=== PATIENT | male | born 1980 | race Caucasian/White ===

== ENCOUNTER → 2017-01-26 | Outpatient (CLI) | payer OTHER ==
--- NOTE | 2017-01-26 16:24 | KCIC ---
MRI Lumbar Spine without contrast History: Intervertebral disc degeneration, chronic low back pain and bilateral hip pain, left radiculopathy Technique: Multiplanar, multi sequential noncontrast MR imaging was performed of the lumbar spine. Contrast: None Comparison: None Findings: Lumbar vertebral body stature and alignment are maintained. There is mild degenerative disease L4-5 and L5-S1. There are posterior annular tears L4-5 and L5-S1, anterior annular tear L5-S1. Conus terminates normally at L1. There is no significant marrow edema. L2-L3: Spinal canal and neural foramina are adequate. L3-L4: There is mild prominence of posterior epidural fat. There is mild buckling of the ligamentum flavum and facet hypertrophic change. Neural foramina are adequate. There is mild attenuation of the thecal sac mostly from posterior epidural lipomatosis. L4-L5: There is minimal disc osteophyte complex and bulge eccentric to the left lateral recess. There is mild prominence of posterior epidural fat, mild buckling of the ligamentum flavum, and facet degenerative change. There is [id number] narrowing of the left lateral recess, contact of the descending left L5 nerve root. Neural foramina are adequate. L5-S1: There is minimal posterior disc osteophyte complex and shallow bulge. There is no significant impingement descending S1 nerve roots, spinal canal overall adequate. There is mild narrowing of the left neural foramen, right neural foramen adequate. Impression: 1. There is [id number] left lateral recess stenosis at L4-5 by disc osteophyte complex and bulge, contact of the descending left L5 nerve root. 2. There is mild degenerative disc disease and spondylosis at L4-5 and L5-S1. Electronically signed by: Graham Conner MD (01/26/2017 4:21 PM)
--- NOTE | 2017-01-26 16:43 | KCIC ---
MR of the right shoulder HISTORY: Right shoulder pain chronically. TECHNIQUE: Routine multiplanar sequences are obtained. FINDINGS: The acromioclavicular joint is intact. Mild diffuse thickening and signal of the rotator cuff compatible with tendinosis. No evidence of a rotator cuff tear. No significant subdeltoid bursal fluid. No significant glenohumeral joint effusion. No evidence of labral tear. No advanced osteoarthritis. Biceps tendon is intact. No bone lesion. No acute fracture. No acute soft tissue abnormality. IMPRESSION: 1. Rotator cuff tendinosis without evidence of a tear. 2. No acute findings. Electronically signed by: Javier Gomez MD (01/26/2017 4:40 PM)
== END | disposition home or self-care (01) ==
LOC: KCIC MRI 14:49
PROVIDERS: ATTEND Physical Medicine & Rehabilitation
DX: M51.37 Other intervertebral disc degeneration, lumbosacral region (principal); M48.06 Spinal stenosis, lumbar region; G89.29 Other chronic pain; M25.552 Pain in left hip; M25.551 Pain in right hip; M25.511 Pain in right shoulder; M25.78 Osteophyte, vertebrae
CPT/HCPCS: 72148; 73221